=== PATIENT | male | born 1975 | race Caucasian/White ===

== ENCOUNTER → 2017-11-30 08:06 | Outpatient (CLI) | payer BC, SELFPAY ==
[2017-11-30 09:09] LABS: Basophils % 0.7 % (0.1-2.0); Eosinophils # 0.1 K/mm3 (0.0-0.4); Eosinophils % 2.6 % (0.1-12.0); Hematocrit 47.1 % (42.0-52.0); Hemoglobin 15.8 g/dL (14.1-18.0); Lymphocytes # 1.7 K/mm3 (0.7-4.5); Lymphocytes % 34.1 K/mm3 (10-50); Mean Corpuscular HGB Conc 33.6 g/dL (31.8-35.4); Mean Corpuscular Hemoglobin 31.1 pg (27.0-31.2); Mean Corpuscular Volume 92.7 fl (80-94); Mean Platelet Volume 7.4 fl (7.4-10.4); Monocytes # 0.3 K/mm3 (0.1-1.0); Monocytes % 6.4 % (1.7-9.3); Neutrophils # 2.8 K/mm3 (1.8-7.8); Neutrophils % 56.2 % (37.0-80.0); Platelet Count 213 K/mm3 (142-424); Red Blood Count 5.08 M/mm3 (4.60-6.20); Red Cell Distribution Width 13.9 % (11.5-17.5)
[2017-11-30 09:54] LABS: Alanine Aminotransferase 44 U/L (12-78); Albumin Level 3.9 gm/dL (3.4-5.0); Alkaline Phosphatase 58 U/L (46-116); Anion Gap 11.4 mEq/L (5-15); Aspartate Amino Transferase 16 U/L (15-37); Bilirubin,Direct 0.1 mg/dL (0.0-0.2); Bilirubin,Indirect 0.6 mg/dL (0.0-0.9); Bilirubin,Total 0.7 mg/dL (0.2-1.0); Blood Urea Nitrogen 19 mg/dL (7-18); Calcium 8.8 mg/dL (8.5-10.1); Carbon Dioxide 30 mmol/L (21.0-32.0); Chloride 106 mmol/L (98-107); Chol/HDL Ratio 5.4 (1-3.5); Cholesterol 195 mg/dL (140-200); Creatinine,Serum 1.03 mg/dL (0.70-1.30); Estimated Glomerular Filt Rate 79 ml/min (>60); GFR (African American) 96 ML/MIN (>60); Glucose 104 mg/dL (74-106); HDL Cholesterol 36 mg/dL (27-67); LDL Cholesterol 118 mg/dL (0-130); Potassium 4.4 mmoL/L (3.5-5.1); Sodium 143 mmol/L (136-145); Total Protein,Serum 6.8 gm/dL (6.4-8.2); Triglycerides 207 mg/dL (30-200); VLDL Cholesterol 41 mg/dL (0-40)
[2017-12-01 19:05] LABS: Testosterone,Total 109 ng/dL (264-916)
== END ==
PROVIDERS: PCP Family Medicine; Visit Provider Family Medicine
DX: E29.1 Testicular hypofunction (principal); E78.5 Hyperlipidemia, unspecified
CPT/HCPCS: 36415; 80048; 80061; 80076; 84403; 85025

== ENCOUNTER → 2018-05-10 08:10 | Outpatient (CLI) | payer BC, SELFPAY ==
[2018-05-10 09:36] LABS: Alanine Aminotransferase 43 U/L (12-78); Albumin Level 4.2 gm/dL (3.4-5.0); Albumin/Globulin Ratio 1.4 (1.1-1.8); Anion Gap 12.1 mEq/L (5-15); Aspartate Amino Transferase 16 U/L (15-37); Bilirubin,Total 0.7 mg/dL (0.2-1.0); Blood Urea Nitrogen 19 mg/dL (7-18); Calcium 9.3 mg/dL (8.5-10.1); Carbon Dioxide 29 mmol/L (21.0-32.0); Chloride 102 mmol/L (98-107); Cholesterol 252 mg/dL (140-200); Creatinine,Serum 1.19 mg/dL (0.70-1.30); Estimated Glomerular Filt Rate 67 ml/min (>60); GFR (African American) 81 ML/MIN (>60); Globulin 2.9 gm/dl (1.3-3.2); Glucose 103 mg/dL (74-106); HDL Cholesterol 30 mg/dL (27-67); Magnesium 2.1 mg/dL (1.4-2.2); Potassium 4.1 mmoL/L (3.5-5.1); Sodium 139 mmol/L (136-145); Total Protein,Serum 7.1 gm/dL (6.4-8.2); Triglycerides 139 mg/dL (30-200); VLDL Cholesterol 28 mg/dL (0-40)
[2018-05-10 09:37] LABS: Alkaline Phosphatase 55 U/L (46-116); Chol/HDL Ratio 8.4 (1-3.5); LDL Cholesterol 194 mg/dL (0-130)
[2018-05-11 12:28] LABS: Testosterone,Total 213 ng/dL (264-916)
== END ==
PROVIDERS: Visit Provider Family Medicine
DX: E29.1 Testicular hypofunction (principal); M62.838 Other muscle spasm
CPT/HCPCS: 36415; 80053; 80061; 83735; 84403

== ENCOUNTER → 2019-04-17 08:04 | Outpatient (CLI) | payer BC, SELFPAY ==
[2019-04-17 09:44] LABS: Basophils % 0.5 % (0.1-2.0); Eosinophils # 0.1 K/mm3 (0.0-0.4); Eosinophils % 2.2 % (0.1-12.0); Hematocrit 51.3 % (42.0-52.0); Hemoglobin 17.2 g/dL (14.1-18.0); Lymphocytes # 1.7 K/mm3 (0.7-4.5); Lymphocytes % 25.4 % (10-50); Mean Corpuscular HGB Conc 33.6 g/dL (31.8-35.4); Mean Corpuscular Hemoglobin 31.8 pg (27.0-31.2); Mean Corpuscular Volume 94.7 fl (80-94); Mean Platelet Volume 8.1 fl (7.4-10.4); Monocytes # 0.5 K/mm3 (0.1-1.0); Monocytes % 7.2 % (1.7-9.3); Neutrophils # 4.2 K/mm3 (1.8-7.8); Neutrophils % 64.6 % (37.0-80.0); Platelet Count 216 K/mm3 (142-424); Red Blood Count 5.41 M/mm3 (4.60-6.20); Red Cell Distribution Width 12.7 % (11.5-17.5); White Blood Count 6.5 K/mm3 (4.8-10.8)
[2019-04-17 10:27] LABS: Alanine Aminotransferase 39 U/L (12-78); Albumin Level 3.9 gm/dL (3.4-5.0); Albumin/Globulin Ratio 1.4 (1.1-1.8); Alkaline Phosphatase 67 U/L (46-116); Anion Gap 12.2 mEq/L (5-15); Aspartate Amino Transferase 22 U/L (15-37); Bilirubin,Total 0.5 mg/dL (0.2-1.0); Blood Urea Nitrogen 16 mg/dL (7-18); Calcium 8.8 mg/dL (8.5-10.1); Carbon Dioxide 30 mmol/L (21.0-32.0); Chloride 105 mmol/L (98-107); Cholesterol 190 mg/dL (140-200); Creatinine,Serum 1.08 mg/dL (0.70-1.30); Estimated Glomerular Filt Rate 75 ml/min (>60); GFR (African American) 90 ML/MIN (>60); Globulin 2.8 gm/dl (1.3-3.2); Glucose 100 mg/dL (74-106); HDL Cholesterol 27 mg/dL (27-67); LDL Cholesterol 119 mg/dL (0-130); Potassium 4.2 mmoL/L (3.5-5.1); Sodium 143 mmol/L (136-145); Total Protein,Serum 6.7 gm/dL (6.4-8.2); Triglycerides 218 mg/dL (30-200); VLDL Cholesterol 44 mg/dL (0-40)
[2019-04-18 12:34] LABS: Testosterone,Total 269 ng/dL (264-916)
== END ==
PROVIDERS: Visit Provider Family Medicine
DX: E78.5 Hyperlipidemia, unspecified (principal); E29.1 Testicular hypofunction
CPT/HCPCS: 36415; 80053; 80061; 84403; 85025

== ENCOUNTER → 2019-08-14 15:14 | Outpatient (CLI) | payer BC, SELFPAY | PROVIDERS: Visit Provider Family Medicine | DX: L03.90 Cellulitis, unspecified; S71.101A Unspecified open wound, right thigh, initial encounter; B95.8 Unspecified staphylococcus as the cause of diseases classified elsewhere | CPT/HCPCS: 87070; 87077; 87186; 87205 ==

== ENCOUNTER 2019-11-29 13:00 | Outpatient (RCR) | payer BC, OTHER, SELFPAY | END 2019-11-29 14:10 | disposition home or self-care (01) | LOC: PT 13:00 | DX: S72.492A Other fracture of lower end of left femur, initial encounter for closed fracture (principal); S72.491A Other fracture of lower end of right femur, initial encounter for closed fracture; S22.43XA Multiple fractures of ribs, bilateral, initial encounter for closed fracture; V89.2XXA Person injured in unspecified motor-vehicle accident, traffic, initial encounter | CPT/HCPCS: 97110; 97112; 97113; 97140; 97163; 97164; 97530; 97760 ==

== ENCOUNTER 2020-03-16 14:00 | Outpatient (RCR) | payer OTHER, SELFPAY | END 2020-03-16 14:05 | disposition home or self-care (01) | LOC: PT 14:00 | PROVIDERS: PCP Family Medicine; Visit Provider Orthopaedic Surgery Orthopaedic Trauma | DX: S72.90XA Unspecified fracture of unspecified femur, initial encounter for closed fracture (principal); S82.143A Displaced bicondylar fracture of unspecified tibia, initial encounter for closed fracture | CPT/HCPCS: 97010; 97014; 97110; 97163; 97164; G0283 ==

== ENCOUNTER → 2022-07-18 09:01 | Outpatient (CLI) | payer OTHER, SELFPAY ==
[2022-07-18 09:42] LABS: Basophils % 0.6 % (0.1-2.0); Eosinophils # 0.2 K/mm3 (0.0-0.4); Eosinophils % 3.2 % (0.1-12.0); Hematocrit 52.7 % (42.0-52.0); Hemoglobin 17.6 g/dL (14.1-18.0); Lymphocytes # 1.8 K/mm3 (0.7-4.5); Lymphocytes % 29.3 % (10-50); Mean Corpuscular HGB Conc 33.3 g/dL (31.8-35.4); Mean Corpuscular Hemoglobin 31.5 pg (27.0-31.2); Mean Corpuscular Volume 94.5 fl (80-94); Mean Platelet Volume 8.2 fl (7.4-10.4); Monocytes # 0.3 K/mm3 (0.1-1.0); Monocytes % 5.6 % (1.7-9.3); Neutrophils # 3.7 K/mm3 (1.8-7.8); Neutrophils % 61.3 % (37.0-80.0); Platelet Count 200 K/mm3 (142-424); Red Blood Count 5.58 M/mm3 (4.60-6.20); Red Cell Distribution Width 13.4 % (11.5-17.5)
[2022-07-18 11:10] LABS: Alanine Aminotransferase 35 U/L (12-78); Albumin Level 4.4 g/dl (3.5-5.0); Albumin/Globulin Ratio 1.9 (1.1-1.8); Alkaline Phosphatase 66 U/L (38-126); Anion Gap 12.5 mEq/L (5-15); Aspartate Amino Transferase 29 U/L (17-59); Bilirubin,Total 0.6 mg/dl (0.2-1.3); Blood Urea Nitrogen 18 mg/dl (9-20); Calcium 8.8 mg/dl (8.4-10.2); Carbon Dioxide 28 mmol/L (22.0-30.0); Chloride 103 mmol/L (98-107); Chol/HDL Ratio 6.4 (1-3.5); Cholesterol 167 mg/dl (140-200); Estimated Glomerular Filt Rate 80 ml/min (>60); GFR (African American) 97 ML/MIN (>60); Globulin 2.3 g/dL (1.3-3.2); Glucose 97 mg/dl (74-100); HDL Cholesterol 26 mg/dl (40-60); Potassium 4.5 mmoL/L (3.5-5.1); Sodium 139 mmol/L (136-145); Total Protein,Serum 6.7 g/dl (6.3-8.2); Triglycerides 160 mg/dl (30-150); VLDL Cholesterol 32 mg/dL (0-40)
[2022-07-18 11:28] LABS: Direct LDL Cholesterol 116.08 mg/dL (100-129)
[2022-07-19 12:12] LABS: Testosterone,Total 393 ng/dL (264-916)
== END ==
PROVIDERS: PCP Family Medicine; Visit Provider Family Medicine
DX: E78.5 Hyperlipidemia, unspecified (principal); E29.1 Testicular hypofunction
CPT/HCPCS: 36415; 80053; 80061; 84403; 85025